=== PATIENT | female | born 1970 | race African-American/Black ===

== ENCOUNTER 2017-05-13 08:22 | Emergency (ER) | payer BC, MEDICAID ==
[~2017-05-13] VITALS: Ht 167.6 cm; Wt 110.0 kg
[2017-05-13] MEDS ORDERED: DIAZEPAM 5 MG TABLET PO ONE (08:45)
[2017-05-13] MEDS ORDERED: IBUPROFEN 800MG TABLET PO ONE (08:45)
[2017-05-13 10:10] VITALS: BP 138/78
== END 2017-05-13 10:10 | disposition home or self-care (01) ==
LOC: ER 08:35
DX: M54.5 Low back pain (principal); R03.0 Elevated blood-pressure reading, without diagnosis of hypertension; V49.09XA Driver injured in collision with other motor vehicles in nontraffic accident, initial encounter; Y93.89 Activity, other specified; Y92.410 Unspecified street and highway as the place of occurrence of the external cause
CPT/HCPCS: 72100; 81025; 99284; Z7610